=== PATIENT | male | born 1990 | race Hispanic/Latino ===

== ENCOUNTER 2023-06-07 17:00 | Outpatient (CLI) | payer BC | END 2023-06-07 17:01 | disposition home or self-care (01) | LOC: SLEEPLAB 17:00 | PROVIDERS: ATTEND Family Medicine Sports Medicine | DX: G47.33 Obstructive sleep apnea (adult) (pediatric) (principal); R06.83 Snoring; E66.9 Obesity, unspecified; E11.9 Type 2 diabetes mellitus without complications; R53.83 Other fatigue | CPT/HCPCS: 95800 ==